=== PATIENT | female | born 1980 | race Caucasian/White ===

== ENCOUNTER 2022-06-12 16:56 | Emergency (ER) | payer BC, SELFPAY ==
[2022-06-12 17:04] VITALS: BP 115/73; PULSE 89; RESP 16; TEMP 36.9; O2SAT 100
--- NOTE | 2022-06-12 17:21 | ED.DENTAL ---
HPI - Dental/Oral General Chief complaint: Dental/Oral Stated complaint: Toothache/Headache Time Seen by Provider: 06/12/22 17:39 Mode of arrival: ambulatory Limitations: no limitations History of Present Illness HPI Narrative: 42-year-old female presents with concern for dental pain. Reports she had right-sided dental work done last week. Reports over the weekend she began having pain to the right side of the face to the upper and lower teeth, she reports sinus pain and ear pain. Reports side of her face is tender. she has been taking Tylenol. She denies fever, chills, sweats, trouble swallowing. MD Complaint: tooth pain Related Data Home Medications Medication Instructions Recorded Confirmed multivitamin 1 cap PO DAILY 01/04/20 06/12/22 Allergies Allergy/AdvReac Type Severity Reaction Status Date / Time Penicillins Allergy Hives Verified 06/12/22 17:22 Review of Systems Review of Systems: CONSTITUTIONAL: Denies malaise, chills, sweats, or fever. EYES: Denies visual changes ENT: Denies rhinorrhea, congestion, sinus pain, otalgia or sore throat. Reports right upper and lower dental pain CARDIOVASCULAR: Denies chest pain, palpitations RESPIRATORY: Denies cough or dyspnea. SKIN: Denies rash or itching. MUSCULOSKELETAL: Denies myalgia. NEUROLOGIC: Denies numbness, weakness, or headache. All systems reviewed & are unremarkable except as noted in HPI and below PMFSH Surgical History Surgical History (Updated 01/04/20 @ 12:57 by aLni Bates CMA) History of breast implant History of delivery 2008 Social History Social History (Updated 01/04/20 @ 12:58 by Lani Bates CMA) Smoking status: Current every day smoker Tobacco type: cigarettes Alcohol intake: current Substance use: never Comments At time of signature, agree with nursing past medical, surgical, social and family history. There is no relevant family history pertinent to the presenting complaint Exam Narrative: GENERAL: Well-appearing, well-nourished, and in no acute distress. HEAD: Normocephalic, atraumatic. EYES: PERRLA, sclera clear ENT: Nares clear, turbinates pink, no rhinorrhea or epistaxis. Mucous membranes moist. TM pearly zheng with sharp light reflex bilaterally; no tragal tenderness. Oropharynx without erythema or lesions. Tonsils not enlarged and without exudate. No missing teeth, broken teeth, caries. Right-sided facial tenderness without erythema, warmth, induration, edema NECK: Supple. No lymphadenopathy. CHEST: No respiratory distress. Speaks in full sentences. HEART: Regular rate and rhythm. SKIN: Warm, dry, no visible rash. NEURO: Alert and oriented x3. PSYCH: Normal mood and affect Course Course Emergency Course: Patient is aware of diagnosis, understands and agrees to treatment plan. Anticipatory guidance given. Patient agrees to follow-up as directed and is aware of reasons to seek care at the emergency department. Portions of this record may have been created with voice recognition software Level of Care: Express Care Visit Vital Signs Vital signs: Vital Signs Temperature 98.5 F 06/12/22 17:04 Pulse Rate 89 06/12/22 17:04 Respiratory Rate 16 06/12/22 17:04 Blood Pressure 115/73 06/12/22 17:04 Pulse Oximetry 100 06/12/22 17:04 Oxygen Delivery Room Air 06/12/22 17:04 Temperature 98.5 F 06/12/22 17:04 Pulse Rate 89 06/12/22 17:04 Respiratory Rate 16 06/12/22 17:04 Blood Pressure 115/73 06/12/22 17:04 Pulse Oximetry 100 06/12/22 17:04 Oxygen Delivery Room Air 06/12/22 17:04 Reviewed. MDM - Dental/Oral MDM Narrative Medical decision making narrative: Patients pain and complaint coupled with physical findings are consistant with dentalgia. There are no focal signs of space occupying lesions that are compromising to the airway; no dysphagia, odynophagia, dysphonia, or dyspnea. No uvular deviation or soft palate edema. Pat
== END 2022-06-12 17:49 | disposition home or self-care (01) ==
PROVIDERS: Emergency Provider Nurse Practitioner; PCP Family Medicine Sports Medicine
DX: K08.89 Other specified disorders of teeth and supporting structures (principal); F17.210 Nicotine dependence, cigarettes, uncomplicated
CPT/HCPCS: 99213; G0463

== ENCOUNTER 2023-03-13 00:34 | Day surgery (SDC) | payer BC, SELFPAY ==
[2023-03-02 13:52] VITALS: BMI 24.4
--- NOTE | 2023-03-12 14:48 | PM.HPGS ---
History of Present Illness History of Present Illness Consent: Risks, benefits, and alternatives have been discussed and questions answered. Patient agrees to proceed with procedure. Chief complaint: other fecal abnormalities Narrative: Gricel Woods is a 42 year old female Referred for colonoscopy due to Recent blood in her stools. the blood was bright red. She has had no abdominal or rectal pain. Review of Systems Review of Systems: All systems reviewed & are unremarkable except as noted in HPI and below PMFSH Surgical History Surgical History History of breast implant History of delivery 2006, 2008 Social History Social History Smoking packs per day: 1 Smoking cigarettes per day: 20.0 Years smoked: 24 Smoking pack-years: 24.00 Smoking status: Current every day smoker Tobacco type: cigarettes Alcohol intake: current Alcohol use details: 2X monthly Substance use: never Substance use type: does not use Living arrangements: with family Spiritual care concerns: No Meds Home Medications and Allergies Home Medications Medication Instructions Recorded Confirmed Type multivitamin 1 cap PO DAILY 01/04/20 03/13/23 History Allergies Allergy/AdvReac Type Severity Reaction Status Date / Time Penicillins Allergy Hives Verified 03/13/23 08:17 Exam Const: General: alert Orientation/consciousness: patient oriented x3 Resp: Auscultation: clear to auscultation bilaterally Cardio: Rhythm: regular rhythm GI: GI Palp: Yes Soft to palpation and No Tenderness to palpation present (GI) Neuro: General: patient oriented x3 Assessment and Plan Assessment and plan (1) Blood in stool: Code(s): K92.1 - Melena Status: Acute Assessment and Plan: Colonoscopy with possible biopsy or polypectomy or cautery or injection of substances.
[2023-03-13 08:18] VITALS: BP 118/61; PULSE 94; RESP 16; TEMP 36.6; O2SAT 100; BMI 24.4
[2023-03-13] MEDS: LACTATED RINGERS 1,000 ML 150 ML IV CONT (08:22)
--- NOTE | 2023-03-13 09:03 | WPDANESEPPF ---
Anes - Initial Pre Proc Eval Procedure: Operation Date: 03/13/23 09:15 Proposed Procedures p Colonoscopy - Keon Wasserman MD Date/Time: 03/13/23 09:03 Surgeon: Keon Wasserman MD Pre Op Diagnosis: other fecal abnormalities Patient Data Age: 42 Gender: F Height: 1.75 m Weight: 75.1 kg Last Vital Signs Temp 97.8 F 03/13/23 08:18 Pulse 94 03/13/23 08:18 Resp 16 03/13/23 08:18 BP 118/61 03/13/23 08:18 Pulse Ox 100 03/13/23 08:18 O2 Del Method Room Air 03/13/23 08:18 Allergies Allergy/AdvReac Type Severity Reaction Status Date / Time Penicillins Allergy Hives Verified 03/13/23 08:17 Home Medications Medication Instructions Recorded Confirmed Type multivitamin 1 cap PO DAILY 01/04/20 03/13/23 History Patient hx anesthesia problems: none Family hx anesthesia problems: none Results Review: All pre-operative results and documents have been reviewed as part of the pre-operative evaluation. [facility] Surgical History Surgical History History of breast implant History of delivery 2008 Social History Social History Smoking packs per day: 1 Smoking cigarettes per day: 20.0 Years smoked: 24 Smoking pack-years: 24.00 Smoking status: Current every day smoker Tobacco type: cigarettes Alcohol intake: current Alcohol use details: 2X monthly Substance use: never Substance use type: does not use Living arrangements: with family Spiritual care concerns: No Anes - Eval Final PreProcedure Day of Procedure 03/13/23 09:03 Patient weight: normal Heart: regular rate and rhythm Lungs: clear to auscultation Airway: Mallampati scale class II Neurological: alert and oriented Last oral intake: >/= 8 hours ASA classification: II Emergent: no Anesthetic plan: proceed Anesthesia type and monitoring: general GIVS and standard monitoring Results Review: All pre-operative results and documents have been reviewed as part of the pre-operative evaluation. Informed Consent: The patient's anesthetic plan and its attendant risks and benefits were discussed with the patient/family/POA. Questions were solicited and answers provided to the satisfaction of the patient/family/POA.
[2023-03-13 09:25] VITALS: BP 116/92; PULSE 82; RESP 24; O2SAT 100
[2023-03-13 09:35] VITALS: BP 99/66; PULSE 71; RESP 20; O2SAT 100
[2023-03-13 09:45] VITALS: BP 100/69; PULSE 64; RESP 19; O2SAT 100
== END 2023-03-13 09:50 | disposition home or self-care (01) ==
PROVIDERS: PCP Physician Assistant; Visit Provider Internal Medicine Gastroenterology
PROC: 0DJD8ZZ Inspection of Lower Intestinal Tract, Via Natural or Artificial Opening Endoscopic (ICD-10-PCS; CPT 45378; principal; 2023-03-13 09:15)
DX: K64.8 Other hemorrhoids (principal); K63.89 Other specified diseases of intestine; F17.210 Nicotine dependence, cigarettes, uncomplicated
CPT/HCPCS: 45378; J2704; J7120